=== PATIENT | male | born 1945 | race Caucasian/White ===

== ENCOUNTER 2019-10-07 09:21 | Emergency (ER) | payer MEDICARE ==
[2019-10-07] MEDS ORDERED: KETOROLAC TROMETHAMINE 30MG/ML ONE (10:02)
[2019-10-07 10:08] LABS: BASOPHILS % (AUTO) 0.4 % (0.0-5.0); EOSINOPHILS % (AUTO) 3.1 % (0.0-8.0); LYMPHOCYTES % (AUTO) 15.7 % (21.0-51.0); MEAN CORPUSCULAR HEMOGLOBIN 29.2 pg (27.0-33.0); MEAN CORPUSCULAR HGB CONC 32.7 g/dL (32.0-36.0); MEAN CORPUSCULAR VOLUME 89.3 fL (79-99); MONOCYTES % (AUTO) 10.6 % (3.0-13.0); NEUTROPHILS % (AUTO) 69.9 % (40.0-77.0); PLATELET COUNT (AUTO) 222 K/uL (130-400); RED BLOOD CELL COUNT(AUTO) 4.59 MIL/uL (4.50-6.20); RED CELL DISTRIBUTION WIDTH 13.2 % (11.0-15.5); WHITE BLOOD COUNT (AUTO) 9.9 K/uL (4.8-10.8)
[2019-10-07 10:20] LABS: POTASSIUM 4.1 mmol/L (3.5-5.1)
== END 2019-10-07 11:59 | disposition home or self-care (01) ==
LOC: EDH 09:21
DX: M10.071 Idiopathic gout, right ankle and foot (principal); M79.604 Pain in right leg; J44.9 Chronic obstructive pulmonary disease, unspecified; I10 Essential (primary) hypertension; Z88.0 Allergy status to penicillin
CPT/HCPCS: 36415; 80048; 85025; 93971; 96374; 99284; J1885

== ENCOUNTER 2022-08-31 10:35 | Inpatient (IN) | payer MEDICARE ==
[~2022-08-31] VITALS: Ht 185.4 cm; Wt 116.1 kg
[~2022-08-31 10:35] MED LIST: ALBU2.5V2 IH; ALLO300T2 PO; APIX5TAB PO; ASPI-1197 PO; CARV6.25 PO; FURO40TA5 PO; ISOS30TA92 PO; PRED20B PO; SIMV40TA59 PO; TAMS-1 PO
[2022-08-31 10:57] LABS: BASOPHILS % (AUTO) 0.1 % (0.0-5.0); EOSINOPHILS % (AUTO) 0.1 % (0.0-8.0); HEMATOCRIT 32.5 % (42-54); LYMPHOCYTES % (AUTO) 2.5 % (21.0-51.0); MEAN CORPUSCULAR HEMOGLOBIN 28.8 pg (27.0-33.0); MEAN CORPUSCULAR HGB CONC 32.9 g/dL (32.0-36.0); MEAN CORPUSCULAR VOLUME 87.6 fL (79-99); MONOCYTES % (AUTO) 2.6 % (3.0-13.0); NEUTROPHILS % (AUTO) 93.7 % (40.0-77.0); PLATELET COUNT (AUTO) 620 K/uL (130-400); RED BLOOD CELL COUNT(AUTO) 3.71 MIL/uL (4.50-6.20); RED CELL DISTRIBUTION WIDTH 16.6 % (11.0-15.5)
[2022-08-31] MEDS ORDERED: ASPIRIN 81MG CHEW TAB PO ONE (11:00)
[2022-08-31] MEDS ORDERED: ALBUTEROL INHALER 90MCG/INH IH SCH (11:00)
[2022-08-31 11:15] LABS: WHITE BLOOD COUNT (AUTO) 30.4 K/uL (4.8-10.8)
[2022-08-31 11:18] LABS: CREATININE 1.6 mg/dL (0.5-1.5); POTASSIUM 4.1 mmol/L (3.5-5.1)
[2022-08-31] MEDS ORDERED: ASPIRIN 81MG CHEW TAB PO SCH (11:30)
[2022-08-31] MEDS ORDERED: LEVOFLOXACIN 750 MG/D5W 150ML BAG IVPB SCH (11:30)
[2022-08-31 11:41] LABS: ALBUMIN 1.7 g/dL (3.5-5.0)
[2022-08-31 12:12] LABS: LYMPHOCYTES % (MANUAL) 3 % (22-44); MAN.DIFF COMMENT-IMPRESSION MANUAL DIFFERENTIAL; MONOCYTES % (MANUAL) 4 % (2-9); PLATELET MORPHOLOGY COMMENT MARKED INCREASE; SEGMENTED NEUTROPHILS % 93 % (40-70)
[2022-08-31 14:35] LABS: ABG BASE EXCESS 0.1 mmol/L (-2.0-3.0); ABG OXYGEN SATURATION 91.4 % (95.0-99.0); ABG PCO2 29 mmHg (35-48)
[2022-08-31] MEDS ORDERED: KCL 20 MEQ ERTAB PO PRN (15:00)
[2022-08-31] MEDS ORDERED: VANCOMYCIN PROTOCOL PER PHARMACY IV SCH (15:00)
[2022-08-31] MEDS ORDERED: POTASSIUM CHLORIDE 10% ELIXIR 20 MEQ/15 ML UDCUP PO PRN (15:00)
[2022-08-31] MEDS ORDERED: LIDOCAINE HCL-MPF 1% 2ML VIAL IV PRN (15:00)
[2022-08-31] MEDS ORDERED: HYDROCODONE/ACETAMINOPHEN 5/325 MG TAB PO PRN ×2 (15:00)
[2022-08-31] MEDS ORDERED: HYDROMORPHONE 1 MG INJ IV PRN (15:00)
[2022-08-31] MEDS ORDERED: POTASSIUM CHLORIDE 20MEQ/100ML 100 ML IV PRN (15:00)
[2022-08-31] MEDS ORDERED: LACTULOSE 20 GM/30 ML UDCUP PO PRN (15:00)
[2022-08-31] MEDS ORDERED: ONDANSETRON 4MG INJ IV PRN (15:00)
[2022-08-31] MEDS ORDERED: DIPHENHYDRAMINE HCL 25 MG CAPSULE PO PRN (15:00)
[2022-08-31] MEDS ORDERED: ACETAMINOPHEN 325 MG TAB PO PRN ×2 (15:00)
[2022-08-31] MEDS ORDERED: NITROGLYCERIN 0.4 MG SL TAB SL PRN (15:00)
[2022-08-31] MEDS ORDERED: GUAIFENESIN-DM 200/20 MG 10 ML PO PRN (15:00)
[2022-08-31] MEDS ORDERED: MAG/ALUM/SIMETH 30 ML UDCUP PO PRN (15:00)
[2022-08-31] MEDS ORDERED: DiphenhydrAMINE HCL 50 MG/ML VIAL IV PRN (15:00)
[2022-08-31] MEDS ORDERED: 0.9%NACL 1000ML 2,397 ML IV ONE (15:30)
[2022-08-31] MEDS ORDERED: VANCOMYCIN 1.5 GM/250 ML BAG 250 ML IV SCH (15:30)
[2022-08-31] MEDS: CEFEPIME HCL 2 GM VIAL IVP SCH ×2 (15:59→23:11)
[2022-08-31] MEDS ORDERED: NIFE30TA98 PO (16:04)
[2022-08-31] MEDS ORDERED: SOLU-MEDROL 40MG VIAL IVP SCH (17:00)
[2022-08-31 18:30] VITALS: BP 122/62
[2022-08-31] MEDS: IPRATROPIUM 0.5 MG/2.5 ML INH IH SCH ×2 (18:59→22:59)
[2022-08-31] MEDS: BUDESONIDE 0.5 MG/2 ML INH IH SCH (18:59)
[2022-08-31] MEDS: ALBUTEROL 0.083% 2.5 MG/3 ML INH IH SCH ×2 (18:59→22:59)
[2022-08-31] MEDS ORDERED: FAMOTIDINE 20MG VIAL IV SCH (21:00)
[2022-08-31] MEDS: FAMOTIDINE 20MG TAB PO SCH (21:00)
[2022-08-31 23:16] VITALS: BP 128/78
[2022-09-01] MEDS: ALBUTEROL 0.083% 2.5 MG/3 ML INH IH SCH ×6 (02:03→22:37)
[2022-09-01] MEDS: IPRATROPIUM 0.5 MG/2.5 ML INH IH SCH ×6 (02:03→22:37)
[2022-09-01 04:32] VITALS: BP 115/69
[2022-09-01] MEDS: BUDESONIDE 0.5 MG/2 ML INH IH SCH (06:49)
[2022-09-01 07:10] VITALS: BP 91/61
[2022-09-01 07:11] LABS: HEMATOCRIT 29.5 % (42-54); MEAN CORPUSCULAR HEMOGLOBIN 28.8 pg (27.0-33.0); MEAN CORPUSCULAR HGB CONC 33.2 g/dL (32.0-36.0); MEAN CORPUSCULAR VOLUME 86.8 fL (79-99); RED BLOOD CELL COUNT(AUTO) 3.4 MIL/uL (4.50-6.20); RED CELL DISTRIBUTION WIDTH 16.7 % (11.0-15.5); WHITE BLOOD COUNT (AUTO) 26.9 K/uL (4.8-10.8)
[2022-09-01 07:19] LABS: CREATININE 1.5 mg/dL (0.5-1.5); POTASSIUM 3.6 mmol/L (3.5-5.1)
[2022-09-01] MEDS: CEFEPIME HCL 2 GM VIAL IVP SCH ×2 (08:24→14:56)
[2022-09-01] MEDS: SOLU-MEDROL 40MG VIAL IVP SCH ×2 (08:24→20:43)
[2022-09-01] MEDS: FAMOTIDINE 20MG TAB PO SCH ×2 (08:25→20:41)
[2022-09-01] MEDS: VANCOMYCIN 750MG VIAL IVPB SCH ×2 (08:25→20:42)
[2022-09-01] MEDS ORDERED: 0.9% NACL 250ML 250 ML IV SCH (09:00)
[2022-09-01] MEDS ORDERED: PREDNISONE 20 MG TABLET PO SCH (09:00)
[2022-09-01] MEDS ORDERED: ENOXAPARIN SODIUM 40 MG/0.4 ML SYRINGE SQ SCH (09:00)
[2022-09-01] MEDS ORDERED: FUROSEMIDE 40 MG TABLET PO SCH (10:30)
[2022-09-01 11:00] VITALS: BP 117/65
[2022-09-01 13:06] LABS: INR 1.19 (0.85-1.15); PROTHROMBIN TIME 12.8 SEC (9.6-11.6)
[2022-09-01 13:08] LABS: PARTIAL THROMBOPLASTIN TIME 39.6 SEC (26.3-35.5)
[2022-09-01] MEDS: LEVOFLOXACIN 500 MG/D5W 100 ML 100 ML IV SCH (14:56)
[2022-09-01] MEDS ORDERED: RENAL DOSE IV PRN (15:00)
[2022-09-01 15:45] VITALS: BP 130/68
[2022-09-01] MEDS ORDERED: BUDESONIDE 0.5 MG/2 ML INH IH SCH (18:00)
[2022-09-01 20:00] VITALS: BP 120/71
[2022-09-01] MEDS: TAMSULOSIN HCL 0.4 MG CAP.ER.24H PO SCH (20:41)
[2022-09-01] MEDS: SIMVASTATIN 20 MG TABLET PO SCH (20:41)
[2022-09-01] MEDS: APIXABAN 5 MG TABLET PO SCH (20:41)
[2022-09-02] VITALS (7 sets, daily range): BP systolic 113–139; BP diastolic 47–79
[2022-09-02] MEDS: IPRATROPIUM 0.5 MG/2.5 ML INH IH SCH ×6 (02:21→23:11)
[2022-09-02] MEDS: ALBUTEROL 0.083% 2.5 MG/3 ML INH IH SCH ×6 (02:21→23:11)
[2022-09-02] MEDS: CEFEPIME HCL 2 GM VIAL IVP SCH ×2 (03:51→14:20)
[2022-09-02 06:28] LABS: ABG BASE EXCESS -0.8 mmol/L (-2.0-3.0); ABG HCO3 23.4 mmol/L (21.0-28.0); ABG OXYGEN SATURATION 95.5 % (95.0-99.0); ABG PCO2 37 mmHg (35-48)
[2022-09-02] MEDS: ASPIRIN 81MG CHEW TAB PO SCH (09:05)
[2022-09-02] MEDS: SOLU-MEDROL 40MG VIAL IVP SCH ×2 (09:05→21:22)
[2022-09-02] MEDS: APIXABAN 5 MG TABLET PO SCH ×2 (09:05→21:21)
[2022-09-02] MEDS: ALLOPURINOL 300 MG TABLET PO SCH (09:05)
[2022-09-02] MEDS: VANCOMYCIN 750MG VIAL IVPB SCH (09:06)
[2022-09-02 09:33] LABS: MEAN CORPUSCULAR HEMOGLOBIN 28.9 pg (27.0-33.0); MEAN CORPUSCULAR HGB CONC 32.7 g/dL (32.0-36.0); MEAN CORPUSCULAR VOLUME 88.2 fL (79-99); RED BLOOD CELL COUNT(AUTO) 3.74 MIL/uL (4.50-6.20); RED CELL DISTRIBUTION WIDTH 16.4 % (11.0-15.5); WHITE BLOOD COUNT (AUTO) 19.2 K/uL (4.8-10.8)
[2022-09-02 09:46] LABS: CREATININE 1.4 mg/dL (0.5-1.5); PHOSPHORUS 3.8 mg/dL (2.5-4.9); POTASSIUM 3.9 mmol/L (3.5-5.1)
[2022-09-02] MEDS: LEVOFLOXACIN 500 MG/D5W 100 ML 100 ML IV SCH (14:20)
[2022-09-02] MEDS: VANCOMYCIN 1G/250ML KIT 250 ML IV SCH (21:20)
[2022-09-02] MEDS: SIMVASTATIN 20 MG TABLET PO SCH (21:21)
[2022-09-02] MEDS: TAMSULOSIN HCL 0.4 MG CAP.ER.24H PO SCH (21:21)
[2022-09-02] MEDS: FAMOTIDINE 20MG TAB PO SCH (21:21)
[2022-09-03] MEDS: IPRATROPIUM 0.5 MG/2.5 ML INH IH SCH ×3 (02:56→10:33)
[2022-09-03] MEDS: ALBUTEROL 0.083% 2.5 MG/3 ML INH IH SCH ×5 (02:56→19:13)
[2022-09-03] MEDS: CEFEPIME HCL 2 GM VIAL IVP SCH ×2 (03:23→14:47)
[2022-09-03 04:15] VITALS: BP 132/67
[2022-09-03 06:03] LABS: BASOPHILS % (AUTO) 0.1 % (0.0-5.0); HEMATOCRIT 32.3 % (42-54); LYMPHOCYTES % (AUTO) 2.4 % (21.0-51.0); MEAN CORPUSCULAR HEMOGLOBIN 28.8 pg (27.0-33.0); MEAN CORPUSCULAR HGB CONC 32.8 g/dL (32.0-36.0); MEAN CORPUSCULAR VOLUME 87.8 fL (79-99); MONOCYTES % (AUTO) 2.9 % (3.0-13.0); NEUTROPHILS % (AUTO) 93.7 % (40.0-77.0); PLATELET COUNT (AUTO) 667 K/uL (130-400); RED BLOOD CELL COUNT(AUTO) 3.68 MIL/uL (4.50-6.20); RED CELL DISTRIBUTION WIDTH 16.4 % (11.0-15.5)
[2022-09-03 06:58] LABS: B-TYPE NATRIURETIC PEPTIDE 999 pg/mL (0-100)
[2022-09-03 08:00] VITALS: BP 134/74
[2022-09-03] MEDS: VANCOMYCIN 1G/250ML KIT 250 ML IV SCH (08:19)
[2022-09-03] MEDS: SOLU-MEDROL 40MG VIAL IVP SCH (08:19)
[2022-09-03] MEDS: ASPIRIN 81MG CHEW TAB PO SCH (08:20)
[2022-09-03] MEDS: APIXABAN 5 MG TABLET PO SCH (08:20)
[2022-09-03] MEDS: ALLOPURINOL 300 MG TABLET PO SCH (08:20)
[2022-09-03 08:50] LABS: CREATININE 1.3 mg/dL (0.5-1.5); MAGNESIUM 1.9 mg/dL (1.80-2.40); PHOSPHORUS 4.5 mg/dL (2.5-4.9)
[2022-09-03 11:00] VITALS: BP 137/64
[2022-09-03] MEDS: LEVOFLOXACIN 500 MG/D5W 100 ML 100 ML IV SCH (14:47)
[2022-09-03] MEDS ORDERED: FUROSEMIDE 40MG VIAL IV SCH (15:00)
[2022-09-03 16:00] VITALS: BP 133/72
[2022-09-03 20:10] VITALS: BP 141/77
[2022-09-03] MEDS ORDERED: CARVEDILOL 3.125 MG TABLET PO SCH (21:00)
[2022-09-04] MEDS ORDERED: FUROSEMIDE 40 MG TABLET PO SCH (09:00)
== END 2022-09-03 20:40 | DRG 871 ==
LOC: EDH 10:35 → EDHIP 14:54 → UNDOADMIN 14:54 → 3CH 17:46
PROVIDERS: ADMIT Internal Medicine; ATTEND Internal Medicine
DX: A41.9 Sepsis, unspecified organism (principal); J18.9 Pneumonia, unspecified organism; J96.01 Acute respiratory failure with hypoxia; J44.0 Chronic obstructive pulmonary disease with (acute) lower respiratory infection; J44.1 Chronic obstructive pulmonary disease with (acute) exacerbation; E87.1 Hypo-osmolality and hyponatremia; D84.9 Immunodeficiency, unspecified; N17.9 Acute kidney failure, unspecified; I13.0 Hypertensive heart and chronic kidney disease with heart failure and stage 1 through stage 4 chronic kidney disease, or unspecified chronic kidney disease; I50.32 Chronic diastolic (congestive) heart failure; J98.11 Atelectasis; N18.30 Chronic kidney disease, stage 3 unspecified; E78.00 Pure hypercholesterolemia, unspecified; E87.8 Other disorders of electrolyte and fluid balance, not elsewhere classified; G47.33 Obstructive sleep apnea (adult) (pediatric); I25.10 Atherosclerotic heart disease of native coronary artery without angina pectoris; N40.0 Benign prostatic hyperplasia without lower urinary tract symptoms; Z66 Do not resuscitate; Z79.01 Long term (current) use of anticoagulants; Z86.16 Personal history of COVID-19; Z87.01 Personal history of pneumonia (recurrent); Z79.82 Long term (current) use of aspirin; Z79.899 Other long term (current) drug therapy; Z86.79 Personal history of other diseases of the circulatory system; Z87.891 Personal history of nicotine dependence; Z90.81 Acquired absence of spleen; Z95.1 Presence of aortocoronary bypass graft; Z96.659 Presence of unspecified artificial knee joint; Z90.49 Acquired absence of other specified parts of digestive tract
CPT/HCPCS: 36415; 36600; 71045; 71250; 80048; 80053; 80202; 82607; 82728; 82746; 82803; 83605; 83735; 83880; 84100; 84145; 84484; 85025; 85027; 85045; 85378; 85610; 85730; 87040; 87324; 87635; 87804; 93005; 94640; 94664; C9803; G0378; J0692; J1650; J1940; J1956; J2920; J3370; J3490; J7030